=== PATIENT | female | born 1995 | race Caucasian/White ===

== ENCOUNTER 2017-10-28 19:34 | Emergency (ER) | payer MEDICAID ==
[~2017-10-28] VITALS: Ht 152.4 cm; Wt 40.0 kg
[2017-10-28] MEDS ORDERED: SODIUM CHLORIDE 0.9% 1,000ML IVBOLUS ONE (20:30)
[2017-10-28] MEDS ORDERED: SODIUM CHLORIDE FLUSH 10ML SYR IVF ONE (20:30)
[2017-10-28] MEDS ORDERED: ONDANSETRON 2MG/ML, 2ML IVPush ONE (20:30)
[2017-10-28 20:42] LABS: ALANINE AMINOTRANSFERASE 18 U/L (12-78); ALBUMIN 4.3 g/dL (3.4-5.0); ANION GAP 11 mmol/L (5-15); CALCIUM 9.1 mg/dL (8.5-10.1); CHLORIDE 106 mmol/L (98-107); CREATININE 0.61 mg/dL (0.55-1.02)
[2017-10-28 20:44] LABS: MEAN CORPUSCULAR HEMOGLOBIN 25.4 pg (27.0-34.8); MEAN CORPUSCULAR HGB CONC 32.5 g/dL (32.4-35.8); MEAN CORPUSCULAR VOLUME 78.2 fL (80-100); MEAN PLATELET VOLUME 9.3 fL (7.4-10.4); PLATELET COUNT 349 x10^3/uL (130-400); RED BLOOD COUNT 4.95 x10^6/uL (3.82-5.3); RED CELL DISTRIBUTION WIDTH 21.6 % (9.6-15.2)
[2017-10-28 20:46] LABS: ALKALINE PHOSPHATASE 58 U/L (45-117); BILIRUBIN,TOTAL 0.6 mg/dL (0.2-1.0); TOTAL PROTEIN 8.4 g/dL (6.4-8.2)
[2017-10-28 21:02] LABS: BASOPHILS # (AUTO) 0.01 x10^3/uL (0-0.3); BASOPHILS % (AUTO) 0 % (0-1); EOSINOPHILS # (AUTO) 0.19 x10^3/uL (0-0.8); EOSINOPHILS % (AUTO) 1 % (1-7); LYMPHOCYTES # (AUTO) 1.45 x10^3/uL (1-6.1); LYMPHOCYTES % (AUTO) 8 % (22-44); MD SCAN; MONOCYTES # (AUTO) 0.98 x10^3/uL (0-1.4); MONOCYTES % (AUTO) 5 % (2-9); NEUTROPHILS # (AUTO) 16.02 x10^3/uL (1.8-8.0); NEUTROPHILS % (AUTO) 86 % (42-75)
[2017-10-28] MEDS ORDERED: ONDANSETRON 2MG/ML, 2ML ONE (21:58)
[2017-10-28 22:39] LABS: MICROSCOPIC INDICATED
[2017-10-28 22:49] LABS: CULTURE INDICATED? NO
[2017-10-28 23:47] VITALS: BP 106/59
== END 2017-10-28 23:52 | disposition home or self-care (01) ==
LOC: ED 23:47
DX: R11.2 Nausea with vomiting, unspecified (principal)
CPT/HCPCS: 36415; 80053; 83690; 84703; 85025; 96361; 96374; 99284; J2405; J7030; 81001

== ENCOUNTER 2020-05-09 05:48 | Emergency (ER) | payer MEDICAID ==
[~2020-05-09] VITALS: Ht 162.6 cm; Wt 50.0 kg
[2020-05-09] MEDS ORDERED: SODIUM CHLORIDE FLUSH 10ML SYR IVF ONE (06:00)
--- NOTE | 2020-05-09 06:17 | NUR ---
PT PRESENTS TO THE ED VIA [facility] AFTER HER HOUSEMATE CALLED WHEN HE WITNESSED A SZ WITH URINARY INCONTINENCE. HE STATES SZ LASTED 2-3 MINUTES. PER EMS, PT ANSWERS A&OX4 QUESTIONS THEN REFUSES TO ANSWER OTHER QUESTIONS. FSBG 140. REFUSED IV FROM EMS. UPON ARRIVAL PT UNBUCKELED HERSELF FROM EMS GURNEY, STOOD UP AND STATED SHE WANTED WATER. PT EDUCATED THAT SHE NEEDED TO WAIT FOR THE ERP TO ASSESS, PT WALKED OVER TO THE SINK AND BEGAN DRINKING FROM THE SINK. PT PLACED ON CARDIAC, BP AND O2 MONITORS. EKG DONE ON ARRIVAL. PT BEGAN PULLING LEADS OFF, EDUCATED TO NOT DO THIS. PT COMPLIANT AFTER EDUCATION. PT UP TO BEDSIDE COMMODE IN ATTEMPT TO OBTAIN UA. PT UNABLE TO PEE AT THIS TIME. PT GIVEN A GLASS OF WATER WITH ERP OKAY. PT THEN PUT HER FINGERS IN HER MOUTH TO MAKE HERSELF THROW UP. PT VOMITED MINIMAL LIQUID WITH GREEN COLORING. BEDRAILS UP X2. PT DISCONNECTED SELF FROM ALL MONITORS AND GOT OUT OF BED TO DRINK MORE WATER FROM THE SINK. PT IN ROOM CLOSE TO NURSE'S STATION, WILL CONTINUE TO MONITOR.
[2020-05-09 06:29] LABS: MEAN CORPUSCULAR HEMOGLOBIN 26.8 pg (27.0-34.8); MEAN CORPUSCULAR HGB CONC 33.2 g/dL (32.4-35.8); MEAN CORPUSCULAR VOLUME 80.6 fL (80-100); MEAN PLATELET VOLUME 7.5 fL (7.4-10.4); PLATELET COUNT 347 x10^3/uL (130-400); RED BLOOD COUNT 4.34 x10^6/uL (3.82-5.3); RED CELL DISTRIBUTION WIDTH 17.6 % (9.6-15.2)
[2020-05-09 06:40] LABS: ALBUMIN 4.6 g/dL (3.4-5.0); ANION GAP 15 mmol/L (5-15); CALCIUM 9.1 mg/dL (8.5-10.1); CHLORIDE 104 mmol/L (98-107)
[2020-05-09 06:43] LABS: ALANINE AMINOTRANSFERASE 61 U/L (12-78); ALKALINE PHOSPHATASE 100 U/L (45-117); BILIRUBIN,TOTAL 1.6 mg/dL (0.2-1.0); CREATININE 0.91 mg/dL (0.55-1.02); TOTAL PROTEIN 8.9 g/dL (6.4-8.2)
--- NOTE | 2020-05-09 07:00 | NUR ---
BEDSIDE REPORT FROM SAMEERA KWONG, PT RESTING IN [facility] WITH FRIEND AT BEDSIDE. MD AT BEDSIDE
[2020-05-09] MEDS ORDERED: ACETAMINOPHEN 325 MG TABLET ONE (07:48)
[2020-05-09 07:56] LABS: MD YES
[2020-05-09 07:57] LABS: BAND#(MANUAL) 0.57 x10^3/uL; BANDS%(MANUAL) 3 % (0-7); LYMPH#(MANUAL) 0.57 x10^3/uL (1-3.4); LYMPHS% (MANUAL) 3 % (22-44); MONOS#(MANUAL) 1.51 x10^3/uL (0.3-2.7); MONOS% (MANUAL) 8 % (2-9); SEG#(MANUAL) 16.25 x10^3/uL (1.8-6.8); SEGS% (MANUAL) 86 % (42-75)
--- NOTE | 2020-05-09 07:57 | NUR ---
PT RESTING IN GURNEY, REFUSING URINE SAMPLE AT THIS TIME. PT MEDICATED FOR HEADACHE. CALL LIGHT WITHIN REACH, PT ON MONITOR.
[2020-05-09 07:58] LABS: MICROCYTOSIS 1+; OVALOCYTES 1+
[2020-05-09 07:59] LABS: <PLATELET ESTIMATE> ADEQUATE; <PLT MORPHOLOGY> NORMAL PLT MORPH; ANISOCYTOSIS 2+; HYPOCHROMIA 1+
[2020-05-09] MEDS ORDERED: ACETAMINOPHEN 325 MG TABLET PO ONE (08:00)
[2020-05-09 08:21] LABS: MICROSCOPIC AUTO
[2020-05-09 08:31] LABS: AMPHETAMINE SCREEN, URINE Negative (Negative); BARBITURATE SCREEN, URINE Negative (Negative); BENZODIAZEPINE SCREEN, URINE Negative (Negative); CANNABINOID SCREEN, URINE Positive (Negative); COCAINE SCREEN, URINE Negative (Negative); METHADONE SCREEN, URINE Negative (Negative); OPIATE SCREEN, URINE Negative (Negative)
[2020-05-09] MEDS ORDERED: IBUPROFEN 600 MG TABLET ONE (09:32)
--- NOTE | 2020-05-09 09:36 | NUR ---
PT STATES HER HEAD STILL HURTS, PA NOTIFIED, PT MEDICATED PER NOV. PT TO HAVE PSYCH EVAL
[2020-05-09] MEDS ORDERED: IBUPROFEN 200 MG TABLET PO ONE (10:00)
--- NOTE | 2020-05-09 10:40 | NUR ---
pt resting in [place] with sister at bedside. pt to have psych eval, denies si/hi at this time but states she self harms frequently and sometimes has si ideation. aware. pt moved to room 2. Report to Rachael KWONG
--- NOTE | 2020-05-09 11:07 | NUR ---
REPORT RECIEVED FROM ELVER RN , PT TO SECURE RM AT THIS TIME PENDING PSYCH EVAL. SISTER AT BEDSIDE FOR SUPPORT
[2020-05-09] MEDS ORDERED: LORazepam 0.5MG TABLET ONE (11:45)
--- NOTE | 2020-05-09 11:54 | NUR ---
BANK CLERK SMITHA IN TO EVAL PT, PT TO BE LH. ORDERS RECEIVED, PT MEDICATED PER NOV. MEAL TRAY ORDERED
[2020-05-09] MEDS ORDERED: LORazepam 0.5MG TABLET PO ONE (12:00)
--- NOTE | 2020-05-09 12:40 | NUR ---
TASK RN: ARLETTE IN ROOM SPEAKING WITH PT AND HER SISTER
--- NOTE | 2020-05-09 14:51 | NUR ---
MOTHER OF PT IS PARIS COVARRUBIAS, .
--- NOTE | 2020-05-09 17:12 | NUR ---
PT CONTINUES TO REST ON SISTER GILBERT AT BEDSIDE FOR COMFORT, SI PRECUATIONS REMAIN IN PLACE, NAD NOTED AT THIS TIME
--- NOTE | 2020-05-09 18:24 | NUR ---
PT DECLINED MEAL TRAY. PT AMBULATED TO WITH STEADY GAIT, BACK TO [facility] AT THIS TIME. HOSPITAL BED ORDERED FOR PT.
--- NOTE | 2020-05-09 18:33 | NUR ---
SISTER RACHAEL COVARRUBIAS WOULD LIKE UPDATES NEEDED # [phone]
--- NOTE | 2020-05-09 18:38 | NUR ---
PACKET FAXED TO [facility] AND [facility]
--- NOTE | 2020-05-09 18:47 | NUR ---
PT PULLING OFF ALL MONITORING EQUIPMENT, MONITOR EQUIPMENT PLACED BACK ON PT, PT EDUCATED TO LEAVE ON. PT PLACED ON HOSPITAL BED.
--- NOTE | 2020-05-09 18:55 | NUR ---
REPORT FROM SILVINA KWONG ASSUMING CARE OF PT AT THIS TIME
--- NOTE | 2020-05-09 20:05 | NUR ---
PT UP TO RESTROOM STEADY GAIT NADN
--- NOTE | 2020-05-09 21:14 | NUR ---
PT RESTING ON HOSPITAL BED, DAVIE SARMIENTOTER IN HALLWAY FOR SAFETY
--- NOTE | 2020-05-09 22:34 | NUR ---
PT RESTING ON HOSPITAL BED, DAVIE SARMIENTOTER IN HALLWAY FOR SAFETY
--- NOTE | 2020-05-09 23:33 | NUR ---
PT RESTING ON HOSPITAL BED, SITTER IN HALLWAY FOR SAFETY NO NEEDS AT THIS TIME
--- NOTE | 2020-05-10 00:34 | NUR ---
PT RESTING ON HOSPITAL BED, SITTER IN HALLWAY FOR SAFETY NO NEEDS AT THIS TIME
--- NOTE | 2020-05-10 01:50 | NUR ---
REPORT RECEIVED FROM ELENITA NEELY.
--- NOTE | 2020-05-10 04:37 | NUR ---
PT RESTING ON GURNEY WITH EYES CLOSED, RESPIRATIONS EVEN AND NONLABORED. ROOM SECURED, SITTER IN HALLWAY WITHIN LINE OF SIGHT.
--- NOTE | 2020-05-10 07:01 | NUR ---
REPORT TO ELENITA WARNER.
--- NOTE | 2020-05-10 07:03 | NUR ---
REPORT RECEIVED FROM ANDERS KWONG.
--- NOTE | 2020-05-10 07:43 | NUR ---
REPORT GIVEN TO SUNSHINE KWONG AT [facility] AT THIS TIME. [facility] WILL CALL BACK AFTER SUNSHINE KWONG TALKS TO
--- NOTE | 2020-05-10 07:45 | NUR ---
PT'S FRIEND AT BEDSIDE AT THIS TIME. SITTER MONITORING FROM HALLWAY FOR SAFETY. ROOM REMAINS SECURE.
--- NOTE | 2020-05-10 09:15 | NUR ---
PT RESTING IN HOSPITAL BED. RESPS EVEN AND UNLABORED. SITTER MONITORING FROM HALLWAY FOR SAFETY. ROOM REMAINS SECURE.
--- NOTE | 2020-05-10 09:38 | NUR ---
PT'S FRIEND AT BEDSIDE AT THIS TIME. SITTER MONITORING FROM HALLWAY FOR SAFETY. ROOM REMAINS SECURE.
--- NOTE | 2020-05-10 10:22 | NUR ---
PT RESTING IN HOSPITAL BED. RESPS EVEN AND UNLABORED. SITTER MONITORING FROM HALLWAY FOR SAFETY. ROOM REMAINS SECURE.
--- NOTE | 2020-05-10 11:04 | NUR ---
DIET TRAY ORDERED AT THIS TIME.
--- NOTE | 2020-05-10 12:06 | NUR ---
DIET TRAY PROVIDED AT THIS TIME.
--- NOTE | 2020-05-10 13:10 | NUR ---
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 RAIZA REQUESTING IF PT CAN BE FURTHER EVALUATED OR BE PLACED ON MEDS FOR SEIZURES. DR. GLOVER AWARE AND STATED PT WAS EVALUATED YESTERDAY AND COULD FOLLOW-UP WITH NEUROLOGIST OUTPATIENT. RAIZA INFORMED OF DR. GLOVER'S INPUT AND WILL NOTIFY ACCEPTING MD AT [facility]. 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 PT IS NOT ON MEDICATIONS FOR SEIZURES AND NEVER HAS BEEN PER SISTER. SISTER GAVE PHONE NUMBER FOR MOTHER PARIS, , AND SHE COULD ANSWER MORE QUESTIONS PERTAINING TO SEIZURES. PRIMARY RN TIMMY AWARE.
--- NOTE | 2020-05-10 13:17 | NUR ---
REPORT GIVEN TO NOLA KWONG AT [facility]. NOLA KWONG WILL TALK TO AND WILL CALL BACK.
--- NOTE | 2020-05-10 13:56 | NUR ---
NOLA KWONG AT [facility] CALLED AND STATED"PT GOT ACCEPTED BUT NEEDS TO BE CLEAR 48 HOURS WITHOUT SZ. WILL BE ACCEPTED TOMORROW." SENIOR BUDGET ANALYST NOTIFIED.
--- NOTE | 2020-05-10 15:36 | NUR ---
PT SLEEPING IN HOSPITAL BED. RESPS EVEN AND UNLABORED. SITTER MONITORING FROM HALLWAY FOR SAFETY. ROOM REMAINS SECURE.
--- NOTE | 2020-05-10 16:41 | NUR ---
PT AMB TO BR AND BACK TO ROOM WITH STEADY GAIT.
--- NOTE | 2020-05-10 17:18 | NUR ---
PT USED HER CELL PHONE IN ROOM. THIS RN EDUCATED REGARDING HER STATUS. PT VERBALLY UNDERSTANDING. THIS RN PUT HER PHONE IN HER BELONGING BAG AT THIS TIME.
--- NOTE | 2020-05-10 17:46 | NUR ---
diet tray ordered at this time.
--- NOTE | 2020-05-10 18:28 | NUR ---
PT SLEEPING IN HOSPITAL BED. RESPS EVEN AND UNLABORED. SITTER MONITORING FROM HALLWAY FOR SAFETY. ROOM REMAINS SECURE.
--- NOTE | 2020-05-10 18:54 | NUR ---
Vinayak wilkes in [facility] - 05/10/20 at 1855 by JACK REPORT GIVEN TO MERT MELENDEZ
--- NOTE | 2020-05-10 18:55 | NUR ---
REPORT GIVEN TO MERT KWONG.
--- NOTE | 2020-05-10 19:15 | NUR ---
REPORT FROM TIMMY KWONG. PT GIVEN DINNER TRAY. PT HAS NO OTHER NEEDS. SITTER IN VIEW OF PT.
--- NOTE | 2020-05-10 20:23 | NUR ---
PT SISTER HERE VISITING AT BEDSIDE. SISTER WAS QUESTIONING WHY PT WAS NOT ALLOWED TO HAVE HER PHONE. SISTER EDUCATED THAT PATIENT BELONGINGS ARE SECURED AND PT IS NOT ALLOWED TO HAVE IT AT BEDSIDE. SISTER VERBALIZED UNDERSTANDING.
--- NOTE | 2020-05-10 20:41 | NUR ---
PT BECAME AGITATED WHEN SISTER WAS VISITING. PT EDUCATED THAT IF SHE CAN NOT REMAIN CALM SHE WILL NOT BE ALLOWED TO HAVE VISITORS. PT SAID "FINE. IM TIRED OF BEING ISOLATED. HOW AM I SUPPOSE TO GET BETTER WHEN IM FUCKING ISOLATED" I EXPLAINED THAT WE ARE TRYING TO GET HER TO ANOTHER FACILITY BUT IT TAKES TIME. PT TOLD HER SISTER TO LEAVE. i TOLD PT I WOULD ALLOW HER ACCESS TO HER PHONE LATER FOR OBTAINING NUMBERS IF SHE COULD REMAIN CALM.
--- NOTE | 2020-05-10 21:39 | NUR ---
PT SITTING IN BED AND APPEARS CALMER. SITTER IN VIEW OF PT
--- NOTE | 2020-05-10 22:15 | NUR ---
PT GIVEN PHONE TO WRITE DOWN NUMBERS. PHONE PLACED BACK IN BELONGINGS BAG. PT NOT HAPPY ABOUT PHONE BEING TAKEN AWAY. PT ONCE AGAIN RAISED HER VOICE TO THIS RN ABOUT BEING ISOLATED BECAUSE SHE CANT HAVE HER PHONE. RN EXPLAINED THE POLICY OF THE DEPARTMENT AND THAT WE ARE TRYING TO GET HER PLACED IN AN OUTSIDE FACILITY AND THAT WOULD PROBABLY BE TOMORROW. PT NOW LAYING IN BED. SITTER IN VIEW OF PT.
--- NOTE | 2020-05-10 23:00 | NUR ---
PT ALLOWED TO USE PHONE. PT COMPLIANT WHEN ASKED TO FINISH CONVERSATION. PT WALKED BACK TO ROOM. SITTER IN VIEW OF PT.
--- NOTE | 2020-05-11 00:52 | NUR ---
PT SITTING IN BED WITH NO NEEDS AT THIS TIME. SITTER IN VIEW OF PT.
[2020-05-11 01:19] VITALS: BP 109/72
--- NOTE | 2020-05-11 02:32 | NUR ---
PT LAYING IN BED IN NAD. PT HAS NO NEEDS AT THIS TIME. SITTER IN VIEW OF PT.
--- NOTE | 2020-05-11 03:35 | NUR ---
pt laying in bed. even rise and fall of chest observed. sitter in view of pt
--- NOTE | 2020-05-11 04:19 | NUR ---
PT LAYING IN BED IN NAD. PT HAS NO NEEDS AT THIS TIME. SITTER IN VIEW OF PT.
--- NOTE | 2020-05-11 04:56 | NUR ---
REPORT FROM ELENITA PAINTING
--- NOTE | 2020-05-11 05:00 | NUR ---
CONTACTED [facility] AND SPOKE WITH TIA. HE WAS UNAWARE OF ACCEPTANCE OF THIS PT BY [facility] AND TOLD ME THAT HE WAS GOING TO LOOK FOR HER REFERRAL PACKET TO SEE IF THERE ARE ANY NOTES REGARDING HER ACCEPTANCE. I FAXED ANOTHER PACKET OVER TO [facility]. TIA SAID HE WOULD LOOK INTO IT AND GET BACK TO US.
--- NOTE | 2020-05-11 07:02 | NUR ---
Report from Nelida KWONG. Pt resting in bed with eyes closed, resp even and unlabored, NADN. Room is secured, sitter within eyesight of pt, all safety measures observed.
--- NOTE | 2020-05-11 08:18 | NUR ---
Meal tray provided to pt with SI precautions observed.
--- NOTE | 2020-05-11 08:37 | NUR ---
Pt resting in bed talking with her boyfriend who is at bedside. Pt calm, denies needs. Room remains secured, sitter within eyesight of pt.
--- NOTE | 2020-05-11 09:56 | NUR ---
Pt resting in bed, asking about "epilleptic testing". Pt advised that follow up with neurology as an outpatient is what Dr. Emerson recomends. Pt agreeable to this, denies other needs.
--- NOTE | 2020-05-11 10:54 | NUR ---
Pt ambulatory to bathroom and back to bed without difficulty, NADOmari.
--- NOTE | 2020-05-11 11:47 | NUR ---
Pt has had series of visitors today including boyfriend, brother in law, and sisters. Pt and her family cooperative with the one visitor at a time rule
--- NOTE | 2020-05-11 12:18 | NUR ---
Pt's sister at bedside talking with pt. Pt became agitated and screamed at sister. Pt's sister asked to leave. Pt's sister agreeable to this. Pt advised that visitors will not be allowed if her behavior escalates to aggression in their presence. Pt now sitting in bed, resp even and unlabored. Room remains secured, sitter within eyesight of pt, all safety measures observed.
[2020-05-11] MEDS ORDERED: LORazepam 1MG TABLET ONE (12:57)
--- NOTE | 2020-05-11 13:06 | NUR ---
This RN walking down hallway and visualized pt yelling at sitter. This RN entered pt room to deliver lunch tray. Pt states "You can't just keep people from their lives! I haven't washed my hair or brushed my teeth! I want my phone so I can call the police!" This RN advised pt that she is on a legal hold and that she must remain in the room unless escorted by a staff member and that the policy is that her belongings must be kept in secure locker. Pt advised that if she is calm and cooperative she will be able to take a shower. Pt continues screaming and interrupting this RN despite education of behavioral expectations. Pt acting aggressive towards this RN and attempting to leave the room. Pt advised that she must remain in her room and that she is on a legal hold and what that entails. Pt continues to attempt to leave the room. This RN attempted to close the door and pt put her arm in the doorframe, screaming "Go ahead! Close it! Close it!" This RN requested security assistance be called. Pt instructed to step back into the room. Pt non compliant with these instructions. Security arrived and pt now sitting on her bed, continuing to scream at security members and this RN. Latoya CHONG at bedside to attempt to speak with pt. Pt continuing to scream at staff members. Orders for 2mg Ativan PO recieved from Latoya CHONG. Latoya CHONG given the Ativan tablets and she gave them to the pt. Pt now sitting on bed, crying. Room is secured, tray table removed from room after pt slammed her fist on it and knocked it down. Door closed, sitter within eyesight of pt.
[2020-05-11] MEDS ORDERED: LORazepam 1MG TABLET PO ONE (13:30)
--- NOTE | 2020-05-11 13:47 | NUR ---
TASK RN: PT LYING IN BED WITH BACK TO DOOR AND STARING AT WALL. QUIET AND COOPERATIVE AT THIS TIME
--- NOTE | 2020-05-11 14:06 | NUR ---
REPORT TO JJ FROM [facility]. PT ACCEPTED BY DR SHANKS AND TO BE TRANSPORTED
--- NOTE | 2020-05-11 14:18 | NUR ---
Pt resting in bed watching people walking in the hallway, DAVIE. Pt quiet and appears calm at this time.
--- NOTE | 2020-05-11 14:46 | NUR ---
Pt refusing to allow this RN to assess pt's VS at this time.
--- NOTE | 2020-05-11 17:15 | NUR ---
REMSA AT BEDSIDE AND REPORT GIVEN. PT GIVEN BELONGINGS. PT AMBULATED FROM ER WITH TRANSPORTATION STAFF
== END 2020-05-11 17:16 ==
LOC: ED 06:53
DX: R45.851 Suicidal ideations (principal); T14.8XXA Other injury of unspecified body region, initial encounter; F39 Unspecified mood [affective] disorder; R30.0 Dysuria; R32 Unspecified urinary incontinence; R55 Syncope and collapse; X58.XXXA Exposure to other specified factors, initial encounter; Y93.89 Activity, other specified; Y92.89 Other specified places as the place of occurrence of the external cause; Y99.8 Other external cause status
CPT/HCPCS: 36415; 80053; 80307; 81001; 84443; 84703; 85025; 99285

== ENCOUNTER 2020-09-30 18:33 | Emergency (ER) | payer MEDICAID ==
[~2020-09-30] VITALS: Ht 154.9 cm; Wt 50.0 kg
--- NOTE | 2020-09-30 18:43 | NUR ---
Lab at bedside. RN at bedside. Seizure pads in place.
[2020-09-30 18:53] LABS: BASOPHILS % (AUTO) 0 % (0-1); EOSINOPHILS % (AUTO) 0 % (1-7); LYMPHOCYTES % (AUTO) 16 % (22-44); MEAN CORPUSCULAR HEMOGLOBIN 25.4 pg (27.0-34.8); MEAN CORPUSCULAR HGB CONC 32.6 g/dL (32.4-35.8); MONOCYTES % (AUTO) 7 % (2-9); NEUTROPHILS % (AUTO) 78 % (42-75); PLATELET COUNT 295 x10^3/uL (130-400); RED BLOOD COUNT 4.43 x10^6/uL (3.82-5.3); RED CELL DISTRIBUTION WIDTH 20.7 % (9.6-15.2)
[2020-09-30] MEDS ORDERED: SODIUM CHLORIDE 0.9% 1,000ML IVBOLUS ONE ×2 (19:00→20:00)
--- NOTE | 2020-09-30 19:04 | NUR ---
Pt.s sister at bedside. EKG completed. Pt reporting headache, requesting aspirin. This RN informing provider of pt.'s elevated HR, headache, and request for aspirin.
[2020-09-30 19:07] LABS: ANION GAP 16 mmol/L (5-15); CALCIUM 9.2 mg/dL (8.5-10.1); CHLORIDE 101 mmol/L (98-107)
[2020-09-30 19:12] LABS: CREATININE 1.01 mg/dL (0.55-1.02)
[2020-09-30] MEDS ORDERED: ACETAMINOPHEN 500 MG TABLET ONE ×2 (19:13→19:16)
[2020-09-30] MEDS ORDERED: ACETAMINOPHEN 500 MG TABLET PO ONE (19:30)
--- NOTE | 2020-09-30 19:48 | NUR ---
Provider at bedside. HR still in 130's.
--- NOTE | 2020-09-30 20:06 | NUR ---
Lab at bedside.
[2020-09-30 20:16] LABS: MD MORPH REVIEW ONLY
[2020-09-30 20:18] LABS: HYPOCHROMIA 1+; MICROCYTOSIS 1+; OVALOCYTES 1+
[2020-09-30 20:20] LABS: POLYCHROMASIA 1+
[2020-09-30 20:21] LABS: <PLATELET ESTIMATE> ADEQUATE; <PLT MORPHOLOGY> NORMAL PLT MORPH
[2020-09-30 20:41] LABS: ACETONE, SERUM Trace (Negative)
[2020-09-30 21:17] VITALS: BP 100/50
--- NOTE | 2020-09-30 21:44 | NUR ---
IV removed, catheter intact, hemostasis achieved. Pt agrees with and understands discharge plan and instructions. Pt riding home with sister.
== END 2020-09-30 21:47 | disposition home or self-care (01) ==
LOC: ED 19:44
DX: G40.409 Other generalized epilepsy and epileptic syndromes, not intractable, without status epilepticus (principal); E86.0 Dehydration; R00.0 Tachycardia, unspecified; F17.290 Nicotine dependence, other tobacco product, uncomplicated; F10.10 Alcohol abuse, uncomplicated; Z72.9 Problem related to lifestyle, unspecified; F17.200 Nicotine dependence, unspecified, uncomplicated; Y90.0 Blood alcohol level of less than 20 mg/100 ml
CPT/HCPCS: 36415; 80048; 80164; 80320; 82010; 83605; 84703; 85025; 93005; 96360; 96361; 99284; 99406; J7030; G0480